=== PATIENT | female | born 1995 | race Caucasian/White ===

== ENCOUNTER 2017-05-08 08:08 | Observation (INO) ==
[2017-05-08] MEDS ORDERED: NITROGLYCERIN 1 GM OINT.TOP TD ONE (08:17)
[2017-05-08] MEDS ORDERED: NITROGLYCERIN 1 GM OINT.TOP ONE (08:23)
[2017-05-08] MEDS ORDERED: amLODIPine 10 MG TABLET PO ONE (08:30)
[2017-05-08] MEDS ORDERED: cloNIDine HCL 0.1 MG TABLET PO SCH ×2 (08:30→21:00)
[2017-05-08] MEDS ORDERED: LABETALOL 5 MG/ML ML IV ONE (08:36)
--- NOTE | 2017-05-08 08:38 | Emergency Department Note ---
SOB HPI - General Chief Complaint: Shortness of Breath/Dyspnea Stated Complaint: short of breath Time Seen by Provider: 05/08/17 08:28 Source: patient Mode of arrival: ambulatory Limitations: no limitations - History of Present Illness Patient comes in feeling shortness of breath since last night. She has also noticed that the last 24 hours her ankles have been more swollen. She is on renal dialysis, takes a number of different blood pressure medications and she has not taken her morning medications. Of note is that in triage her blood pressure was very high. She feels a chest heaviness and tightness, labored breathing. No history of coronary disease, she does have cardiomegaly on the chest x-ray. MD Complaint: shortness of breath - Related Data Home Medications Medication Instructions Recorded Confirmed amlodipine 10 mg tablet 10 mg PO BID tab 09/07/16 05/08/17 ascorbic acid (vitamin C) 1 tab PO Q2D 09/07/16 05/08/17 epoetin shannon 3,000 unit/mL 2,000 unit SUB-Q .2XW ml 09/07/16 05/08/17 injection solution sevelamer HCl 2,400 mg PO TID 09/07/16 05/08/17 RX: calcium acetate 667 mg capsule 667 mg PO TID 01/26/17 05/08/17 Previous Rx's Medication Instructions Recorded furosemide 80 mg tablet 80 mg PO DAILY #90 tab 03/09/17 hydrocodone 5 mg-acetaminophen 325 1 tab PO Q6H PRN #30 tab 05/05/17 mg tablet clonidine HCl 0.2 mg tablet 0.2 mg PO BID 90 Days 05/06/17 ferrous sulfate 325 mg (65 mg 325 mg PO BID 90 Days 05/06/17 iron) tablet,delayed release labetalol 300 mg tablet 300 mg PO TID 90 Days 05/06/17 vitamin B complex-vitamin C 100 1 tab PO QDAY #90 tab 05/06/17 mg-folic acid 1 mg tablet Allergies Allergy/AdvReac Type Severity Reaction Status Date / Time No Known Drug Allergies Allergy Verified 05/08/17 08:26 Review of Systems All systems ED: reviewed and negative except as stated. Past Medical History - Past Medical History Attestation: Yes: The following information was validated with the patient. 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.), seizures, other (gout pyelonephritis reflux nephropathy secondary hyperparathyroidismanemia and chronic disease medullary sponge kidney) Surgical history ED: Reports: vascular surgery, other (right nephrectomy) Psychiatric history: Reports: no psych history - Social History smoking status: Never smoker Alcohol use: Reports: None Drug use: Reports: none Physical Exam - General Limitations: no limitations General appearance: alert, in distress - Head Head exam: atraumatic, normocephalic - Eye Eye exam: Present: normal appearance, PERRL, EOMI - ENT ENT exam: normal exam, normal oropharynx, mucous membranes moist - Neck Neck exam: Present: normal inspection, full ROM - Chest Chest inspection: Present: normal inspection, symmetric chest wall rise. Absent : tenderness - Respiratory Respiratory exam: Present: respiratory distress, accessory muscle use, other ( Basilar crackles) - Cardiovascular Cardiovascular exam: Present: regular rate, normal rhythm, tachycardia, normal heart sounds, JVD - Abdominal Exam Abdominal exam: Present: soft, normal bowel sounds. Absent: distention, tenderness, guarding - Extremities Exam Extremities exam: Present: normal inspection, full ROM, tenderness, pedal edema - Back Exam Back exam: Present: normal inspection, full ROM. Absent: CVA tenderness (R), CVA tenderness (L) - Neurological Exam Neurological exam: Present: alert, oriented X3, CN II-XII intact - Psychiatric Psychiatric exam: Present: normal affect - Skin Skin exam: Present: warm, dry, intact. Absent: rash Course - Reevaluation(s) Reevaluation #1: At this point we have given her her regular medications also additional dose of labetalol IV to get her blood pressure down which is well over 120 diastolic. She was started on nitroglycerin, she was given her clonidine as well as labetalol and amlodipine. We will also give her 40 mg of Lasix IV as her chest x-ray is showing bilateral pulmonaryedema. Labs are pending at this time. Patient signed out to Dr. Leiva at 9 AM. Vital Signs Temperature 98.7 F 05/08/17 08:08 Pulse Rate 115 H 05/08/17 08:08 Respiratory Rate 24 H 05/08/17 08:08 Blood Pressure 206/143 05/08/17 08:08 Pulse Oximetry (%) 100 05/08/17 08:08 Temperature 98.7 F 08/13/17 08:08 Pulse Rate 100 H 05/08/17 08:46 Respiratory Rate 19 05/08/17 08:46 Blood Pressure 198/144 05/08/17 08:46 Pulse Oximetry (%) 100 05/08/17 08:46 Shortness of Breath/Dyspnea - Lab Data Result diagrams: 05/08/17 08:17 05/08/17 08:17 Disposition Pt seen by LABOR CONTRACT ANALYST/PA only: No Condition: Fair Referrals: Paco Briscoe DO [Primary Care Provider] -
[2017-05-08] MEDS ORDERED: FUROSEMIDE 40 MG/4 ML VIAL IV ONE (08:41)
[2017-05-08] MEDS ORDERED: LABETALOL 100 MG TABLET PO SCH ×2 (09:00→15:00)
[2017-05-08 09:07] LABS: Basophils # (Auto) 0.1 K/mcL (0.0-0.3); Basophils % (Auto) 0.7 % (0.0-2.0); Eosinophils # (Auto) 0.2 K/mcL (0.0-0.7); Eosinophils % (Auto) 2.7 % (0.0-7.0); Granulocytes % (Auto) 76.7 % (38.0-78.0); Lymphocytes % (Auto) 12.6 % (15.5-49.0); Mean Cell Volume 89.8 fL (80.0-100.0); Mean Corpuscular HGB Conc 32.6 g/dL (31.0-36.0); Mean Corpuscular Hemoglobin 29.3 pg (26.0-34.0); Monocytes # (Auto) 0.6 K/mcL (0.1-0.9); Monocytes % (Auto) 7.3 % (1.0-12.0); Platelet Count 299 K/mcL (140-440); RBC 3.66 M/mcL (4.00-5.20); Red Cell Distribution Width 15.8 % (11.5-14.5)
[2017-05-08 09:21] LABS: ALT/SGPT < 5 U/l (0-40); Albumin 4.1 gm/dL (3.2-5.2); Albumin/Globulin Ratio 1.5 (1.0-2.3); Alkaline Phosphatase 51 U/L (39-117); Blood Urea Nitrogen 43 mg/dl (6-20)
[2017-05-08 09:34] LABS: proBNP > 70000.0 pg/ml (0-125)
[2017-05-08] MEDS ORDERED: ONDANSETRON 4 MG/2 ML VIAL IV ONE (09:52)
--- NOTE | 2017-05-08 10:31 | XRay Report ---
CLINICAL INFORMATION: Shortness of breath COMPARISON: 01/27/2017 FINDINGS: The heart is moderately enlarged - increased from previous study. Right IJ double-lumen catheter tip overlies the right atrium near the tricuspid valve plane. Mediastinum is unremarkable. The pulmonary vessels are mildly distended compared to 01/26/2017 study and there is peribronchial vascular edema in the perihilar regions. Moderate right pleural effusion noted IMPRESSION: Moderate CHF or volume overload. Right IJ double-lumen catheter tip is near the tricuspid valve plane - suggest withdrawal 3 cm Interpreted and Authenticated by: a[place] 05/08/17
[2017-05-08] MEDS ORDERED: ACETAMINOPHEN 325 MG TABLET PO PRN (11:42)
[2017-05-08] MEDS ORDERED: ONDANSETRON 4 MG/2 ML VIAL IV PRN (11:42)
--- NOTE | 2017-05-08 11:44 | Emergency Department Note ---
SOB HPI - General Chief Complaint: Shortness of Breath/Dyspnea Stated Complaint: short of breath Time Seen by Provider: 05/08/17 08:28 Source: patient Mode of arrival: ambulatory Limitations: no limitations - Related Data Home Medications Medication Instructions Recorded Confirmed amlodipine 10 mg tablet 10 mg PO BID tab 09/07/16 05/08/17 ascorbic acid (vitamin C) 1 tab PO Q2D 09/07/16 05/08/17 epoetin shannon 3,000 unit/mL 2,000 unit SUB-Q .2XW ml 09/07/16 05/08/17 injection solution sevelamer HCl 2,400 mg PO TID 09/07/16 05/08/17 calcium acetate 667 mg capsule 667 mg PO TID 01/26/17 05/08/17 Previous Rx's Medication Instructions Recorded furosemide 80 mg tablet 80 mg PO DAILY #90 tab 03/09/17 hydrocodone 5 mg-acetaminophen 325 1 tab PO Q6H PRN #30 tab 05/05/17 mg tablet clonidine HCl 0.2 mg tablet 0.2 mg PO BID 90 Days 05/06/17 ferrous sulfate 325 mg (65 mg 325 mg PO BID 90 Days 05/06/17 iron) tablet,delayed release labetalol 300 mg tablet 300 mg PO TID 90 Days 05/06/17 vitamin B complex-vitamin C 100 1 tab PO QDAY #90 tab 05/06/17 mg-folic acid 1 mg tablet Allergies Allergy/AdvReac Type Severity Reaction Status Date / Time No Known Drug Allergies Allergy Verified 05/08/17 08:26 Past Medical History - Past Medical History 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.), seizures, other (gout pyelonephritis reflux nephropathy secondary hyperparathyroidismanemia and chronic disease medullary sponge kidney) Surgical history ED: Reports: vascular surgery, other (right nephrectomy) Psychiatric history: Reports: no psych history - Social History Alcohol use: Reports: None Drug use: Reports: none Physical Exam - General Limitations: no limitations General appearance: alert, in distress Course Vital Signs Temperature 98.7 F 05/08/17 08:08 Pulse Rate 115 H 05/08/17 08:08 Respiratory Rate 24 H 05/08/17 08:08 Blood Pressure 206/143 05/08/17 08:08 Pulse Oximetry (%) 100 05/08/17 08:08 Temperature 98.7 F 05/08/17 08:08 Pulse Rate 87 05/08/17 11:31 Respiratory Rate 24 H 05/08/17 11:31 Blood Pressure 157/108 05/08/17 11:31 Pulse Oximetry (%) 100 05/08/17 11:31 Shortness of Breath/Dyspnea - MDM Narrative Medical decision making narrative: Continuation of Dr. Jackson dictation.. Tests indicate patient is in CHF with x- ray showing volume overload. The greater than 70,000. Complaining of orthopnea. Case was discussed with the pricing lead Dr. JAIN. To be admitted to the hospitalist for volume overload with emergency dialysis today. The [facility] contacted Dr. Reyna here to evaluate the patient. - Lab Data Result diagrams: 05/08/17 08:17 05/08/17 08:17 Lab Results 05/08/17 05/08/17 05/08/17 Range/Units 08:17 08:17 08:17 WBC 7.6 (4.5-11.0) K/mcL RBC 3.66 L (4.00-5.20) M/mcL Hgb 10.7 L (12.0-15.0) g/dL Hct 32.9 L (36.0-48.0) % MCV 89.8 (80.0-100.0) fL MCH 29.3 (26.0-34.0) pg MCHC 32.6 (31.0-36.0) g/dL RDW 15.8 H (11.5-14.5) % Plt Count 299 (140-440) K/mcL MPV 6.1 L (7.4-10.4) fL Gran % 76.7 (38.0-78.0) % Lymph % (Auto) 12.6 L (15.5-49.0) % [place] % (Auto) 7.3 (1.0-12.0) % Eos % (Auto) 2.7 (0.0-7.0) % Baso % (Auto) 0.7 (0.0-2.0) % Gran # 5.9 (1.8-8.0) K/mcL Lymph # (Auto) 1.0 L (1.5-4.8) K/mcL [place] # (Auto) 0.6 (0.1-0.9) K/mcL Eos # (Auto) 0.2 (0.0-0.7) K/mcL Baso # (Auto) 0.1 (0.0-0.3) K/mcL Sodium 131 L (133-145) mmol/L Potassium 5.2 H (3.3-5.1) mmol/L Chloride 90 L (96-108) mmol/L Carbon Dioxide 18 L (22-30) mmol/L Anion Gap 23.0 H (8-16) BUN 43 H (6-20) mg/dl Creatinine 10.2 H* (0.6-1.1) mg/dl GFR Calculation 5 Glucose 83 (70-105) mg/dL Calcium 9.9 (8.6-10.4) mg/dl Total Bilirubin 0.6 (0.0-1.0) mg/dL AST 13 (0-37) U/l ALT < 5 (0-40) U/l Alkaline Phosphatase 51 (39-117) U/L Troponin T < 0.01 (0-0.03) ng/ml NT-Pro-B Natriuret Pep > 10082.0 H (0-125) pg/ml Total Protein 6.8 (5.9-8.4) gm/dL Albumin 4.1 (3.2-5.2) gm/dL Globulin 2.7 (2.2-3.7) gm/dL Albumin/Globulin Ratio 1.5 (1.0-2.3) Disposition Pt seen by STOCK PITCHER/PA only: No Clinical Impression: Chronic renal failure, Fluid overload Disposition: Xfer As Inpt ([facility]) Condition: Fair Instructions: Chronic Kidney Disease (ED) Referrals: Paco Briscoe DO [Primary Care Provider] - Time of Disposition: 11:44
[2017-05-08] MEDS ORDERED: HYDROcodone/APAP 5/325MG TABLET PO PRN (11:49)
[2017-05-08] MEDS ORDERED: hydrALAZINE 20 MG/ML VIAL IV PRN (11:51)
[2017-05-08] MEDS ORDERED: NITROGLYCERIN 1 GM OINT.TOP TD SCH (12:00)
--- NOTE | 2017-05-08 13:34 | Nephrology Consult Note ---
History of Present Illness - Reason for Consult Patient information: Note initiated : 05/08/17 at 1:27 pm Service Date, if different from initiated Date: [] Patient: Basilio Mullins 21 y/o F admitted on 05/08/17 for short of breath. Chief Complaint: [] end stage renal disease - Chief Complaint Dyspnea - History of Present Illness 21 years old female with h/o end stage renal disease, medullary sponge kidney, on hemodialysis since August 2016. She was advised by Dr. Cartwright to have hemodialysis thrice weekly on Tue-Tue-Tue but she states that she declined, as she wants to continue only Tuesday and Tuesday. She had revision of AVF done last week and was asked to have dialysis on Tuesday but she had declined. After dialysis on Tuesday, she reported weighing out at 63 kg. Dry weight is 60.2 kg, as reported by her. Presently, weight is 64 kg and she has sacral and pedal edema more than her usual. Her nurse reported that she was given IV Lasix and Nitropaste in ER and she reported feeling less short of breath now. She denied c/o fever. Her urine output is about 250-300 ml per 24 hours. She denied use of NSAIDs. Review of Systems Constitutional: as per HPI Past History Past medical history: ESRD. Medullary sponge kidney. Anemia. VUR. Secondary hyperparathyroidism. Hyperphosphatemia. Fluid overload. Hypertension. Past surgical history: AV fistula LUE. Rt IJ tunneled HD catheter. Medications and Allergies Home Medications Medication Instructions Recorded Confirmed Type amlodipine 10 mg tablet 10 mg PO BID tab 09/07/16 05/08/17 History ascorbic acid (vitamin C) 1 tab PO Q2D 09/07/16 05/08/17 History epoetin shannon 3,000 unit/mL 2,000 unit SUB-Q .2XW ml 09/07/16 05/08/17 History injection solution sevelamer HCl 2,400 mg PO TID 09/07/16 05/08/17 History calcium acetate 667 mg capsule 667 mg PO TID 01/26/17 05/08/17 History furosemide 80 mg tablet 80 mg PO DAILY #90 tab 03/09/17 05/08/17 Rx hydrocodone 5 mg-acetaminophen 325 1 tab PO Q6H PRN #30 tab 05/05/17 05/08/17 Rx mg tablet clonidine HCl 0.2 mg tablet 0.2 mg PO BID 90 Days 05/06/17 05/08/17 Rx ferrous sulfate 325 mg (65 mg 325 mg PO BID 90 Days 05/06/17 05/08/17 Rx iron) tablet,delayed release labetalol 300 mg tablet 300 mg PO TID 90 Days 05/06/17 05/08/17 Rx vitamin B complex-vitamin C 100 1 tab PO QDAY #90 tab 05/06/17 05/08/17 Rx mg-folic acid 1 mg tablet Allergies Allergy/AdvReac Type Severity Reaction Status Date / Time No Known Drug Allergies Allergy Verified 05/08/17 08:26 Exam - Vital Signs Vital signs: Temp Pulse Resp BP Pulse Ox 97.4 F 81 26 H 163/110 99 05/08/17 11:42 05/08/17 12:16 05/08/17 11:46 05/08/17 12:16 05/08/17 12:16 Additional exam: No erythema at right chest HD catheter site. +Bruit over left arm AV fistula site. Results - Lab Results 05/08/17 08:17 05/08/17 08:17 Most recent lab results Calcium 9.9 mg/dl (8.6-10.4) 05/08/17 08:17 Assessment and Plan (1) ESRD (end stage renal disease) on dialysis HD today for 2 hours, ultrafiltration 2-3 liters as tolerated. Expect BP to improve with HD/ultrafiltration. Advised to continue her usual BP medications, Lasix, iron supplement, phosphate binders. If clinically stable after hemodialysis and without hypoxia, tachycardia, hypotension or dyspnea more than her usual baseline, ok to discharge from renal standpoint. She was advised to follow up at dialysis unit tomorrow according to her usual hemodialysis schedule Patient counseled regarding fluid and sodium restriction. Also advised to start dialysis on Tuesday to complete thrice weekly Tue-Tue-Tue schedule. Risk of recurrent hospitalization and risks of fluid overload discussed. Echocardiogram will be arranged to be done as out patient. Status: Acute (2) Fluid overload Status: Acute
--- NOTE | 2017-05-08 16:52 | Internal Med History&Physical ---
Medical - H&P: [facility] Patient information: Note initiated : 05/08/17 at 4:50 pm Service Date, if different from initiated Date: [] Patient: Basilio Mullins a 21 y/o F admitted on 05/08/17 for short of breath. Chief complaint: Dyspnea, lower extremity edema History of present illness: Ms. Mullins is a 21 year old F with a history of end-stage renal disease, on hemodialysis since August 2016, currently dialyzing on Mondays and Fridays. She also has a history of secondary hyperparathyroidism, anemia related to renal disease which is stable, hypertension which has been more difficult to control. Patient underwent revision of her AV fistula as well as a fistulogram on Tuesday. She felt she probably received more fluids than usual during the surgery. She was advised to have dialysis on Tuesday, but decided to do dialysis as usual on Tuesday. Her dry weight is 60.2 kg, she was 63 kg at the end of last dialysis run. Overnight she became dyspneic. She is unable to lie down due to shortness of breath. She noticed worsening lower extremity edema, chronically has some edema , but worsened overnight. Because of the shortness of breath and worsening edema she presents to the emergency room today. She's found to be volume overloaded, also had significantly elevated blood pressure (had not yet had a chance to take her morning meds including clonidine). She received several doses of labetalol, both intravenously and orally, one incidence of Nitropaste as well as 10 mg of amlodipine and 0.1 mg of clonidine as well as 40 mg of furosemide. When I see her, her breathing has improved. However she still is volume overloaded and experiencing elevated blood pressures with systolics in the 150s and diastolics in the 100s. She will be hospitalized for urgent hemodialysis for volume overload. She denies fevers, chills, cough, sputum production. No frothy sputum. No chest pain/tightness/squeezing. She had mild nausea in the ED, resolved after Zofran. No emesis, no hematemesis, no diarrhea. No focal neurologic symptoms. Review of systems: The remainder of a 10 point review of systems is negative, except as noted in the history of present illness Medical - H&P: [facility] Medical history: Medical History (Last Updated 08/13/17 @ 11:44 by Delmer Leiva MD) ESRD (end stage renal disease) on dialysis (Acute) since 08/2016 Hypertension (Chronic) Anemia in chronic kidney disease (Chronic) Medullary sponge kidney (Chronic) CKD (chronic kidney disease), stage V (Chronic) Secondary hyperparathyroidism (Chronic) Community acquired pneumonia (Acute) Kidney failure (Chronic ~2000) Gout (Chronic) Jaw pain, non-TMJ (Acute) Reflux nephropathy (Chronic) Surgical history: Past Surgical History (Last Reviewed 03/16/17 @ 10:44 by Paco Briscoe DO) History of LUE AVF 10/2016 History of nephrectomy (Chronic ~06/2001) History of urethral stent (Chronic ~2001) Hx of tonsillectomy (Chronic ~10/2001) Pertinent family history: Family History (Last Reviewed 03/16/17 @ 10:44 by Paco Briscoe DO) Sister Vesicoureteral reflux Brother Nephrolithiasis Grandfather Arthritis Family/Other Lung cancer Ovarian cancer Cervical cancer Dementia Heart attack Stroke Father Hypertension, essential Grandfather Heart attack Smoking status: Never smoker Alcohol use: none Medical - H&P: Meds Home Medications Medication Instructions Recorded Confirmed Type amlodipine 10 mg tablet 10 mg PO BID tab 09/07/16 05/08/17 History ascorbic acid (vitamin C) 1 tab PO Q2D 09/07/16 05/08/17 History epoetin shannon 3,000 unit/mL 2,000 unit SUB-Q .2XW ml 09/07/16 05/08/17 History injection solution sevelamer HCl 2,400 mg PO TID 09/07/16 05/08/17 History calcium acetate 667 mg capsule 667 mg PO TID 01/26/17 05/08/17 History furosemide 80 mg tablet 80 mg PO DAILY #90 tab 03/09/17 05/08/17 Rx hydrocodone 5 mg-acetaminophen 325 1 tab PO Q6H PRN #30 tab 05/05/17 05/08/17 Rx mg tablet clonidine HCl 0.2 mg tablet 0.2 mg PO BID 90 Days 05/06/17 05/08/17 Rx ferrous sulfate 325 mg (65 mg 325 mg PO BID 90 Days 05/06/17 05/08/17 Rx iron) tablet,delayed release labetalol 300 mg tablet 300 mg PO TID 90 Days 05/06/17 05/08/17 Rx vitamin B complex-vitamin C 100 1 tab PO QDAY #90 tab 05/06/17 05/08/17 Rx mg-folic acid 1 mg tablet Allergies Allergy/AdvReac Type Severity Reaction Status Date / Time No Known Drug Allergies Allergy Verified 05/08/17 08:26 Medical - H&P: Exam - Constitutional Vitals: Temp Pulse Resp BP Pulse Ox 98.2 F 78 26 H 161/112 99 05/08/17 16:10 05/08/17 16:10 05/08/17 11:46 05/08/17 16:10 05/08/17 12:16 - Other Additional findings: General: Alert, in no acute distress HEENT: Normocephalic. Pupils are equally round and reactive to light. Sclera are anicteric. No conjunctival injection. Oropharynx is with moist mucous membranes, no lip or gum lesions. Tongue is midline. Neck: Supple, no meningismus. No thyromegaly. Chest: Few basal rales, otherwise clear to auscultation bilaterally No accessory muscle use. Cardiovascular: Regular rate and rhythm with 3/6 murmur throughout the precordium, consistent with bruit from upper extremity fistula. No gallop or rub. Carotid pulses are 2+. There is 3+ lower extremity edema. JVP is elevated. Abdomen: Soft, nontender without guarding or rebound. Active bowel sounds. No hepatosplenomegaly. Lymphatic: No cervical or supraclavicular lymphadenopathy. Skin: Warm, dry. No rash. Skin turgor is normal. Ecchymoses on left arm at site of fistula revision, surgical wound intact. Musculoskeletal: AVF R arm with strong thrill and bruit that radiates to clavicles and chest. No joint erythema or tenderness. Normal range of motion in the upper and lower extremities. Strength 5/5 in upper and lower extremities. Digits without cyanosis or clubbing. Neuro: Alert, oriented X3. Cranial nerves II through XII grossly intact. Sensation intact to light touch. Psychiatric: Affect and orientation are normal. Good insight. Medical - H&P: Reslt - Labs CBC & Chem 7: 05/08/17 08:17 05/08/17 08:17 - EKG Data -: EKG Reviewed by Myself EKG shows normal: sinus rhythm, intervals, ST-T waves Medical - H&P: A/P - Narrative A/P Narrative: 21-year-old female with end-stage renal disease, on hemodialysis via a tunneled catheter. Presents with evidence of volume overload. Apparently dialyzing on Mondays and Fridays there would've been recommended for her to go to 3 days a week. Suspect some chronic volume overload. Was quite symptomatic at arrival in ED, would benefit from volume reduction today. Usual dialysis days on Tuesday. Patient also with significant hypertension at presentation. In part due to not taking her morning medications. She states she's had difficult to control blood pressure over the last couple months. Suspect this is due to chronic volume overload. Potassium is only mildly elevated at 5.2, no evidence of EKG changes. This can be corrected with dialysis and does not require other treatment. Plan: Observation hospitalization Nephrology consultation for hemodialysis Continue home blood pressure regimen with PRN's ordered Supplemental oxygen as needed CODE STATUS is full code Medical - H&P: Qual - VTE Contraindication No VTE Prophylaxis: Not indicated Is this test being ordered to rule out VTE?: No Deep Vein Thrombosis/Pulmonary Embolism Present on Admission: No
--- NOTE | 2017-05-08 18:17 | Discharge Summary ---
Medical - DS: Prov Patient information: Note initiated : 05/08/17 at 6:15 pm Service Date, if different from initiated Date: [] Patient: Basilio Mullins 21 y/o F admitted on 05/08/17 for short of breath. Date of admission: 05/08/17 12:08 Discharge date: 05/08/17 Primary care physician: Paco Briscoe Admitting clinician: Urmila Girard Consults: Kale Cope MD, Nephrology Discharging clinician: Urmila Girard Medical - DS: Meds - Discharge Medications Active and Home Medications: Home Medications amlodipine 10 mg tablet 10 mg PO BID tab 09/07/16 [History Confirmed 05/08/17 Last Taken 01/24/17 06:30] ascorbic acid (vitamin C) 1 tab PO Q2D 09/07/16 [History Confirmed 05/08/17 Last Taken 01/21/17] epoetin shannon 3,000 unit/mL injection solution 2,000 unit SUB-Q .2XW ml [History Confirmed 05/08/17 Last Taken 01/21/17 07:30] sevelamer HCl 2,400 mg PO TID 09/07/16 [History Confirmed 05/08/17 Last Taken 12:00] calcium acetate 667 mg capsule 667 mg PO TID 01/26/17 [History Confirmed Last Taken Unknown] furosemide 80 mg tablet 80 mg PO DAILY #90 tab 03/09/17 [Rx Confirmed 05/08/17 Last Taken Unknown] hydrocodone 5 mg-acetaminophen 325 mg tablet 1 tab PO Q6H PRN #30 tab 05/05/17 [ Rx Confirmed 05/08/17 Last Taken Unknown] clonidine HCl 0.2 mg tablet 0.2 mg PO BID 90 Days 05/06/17 [Rx Confirmed Last Taken Unknown] ferrous sulfate 325 mg (65 mg iron) tablet,delayed release 325 mg PO BID 90 Days 05/06/17 [Rx Confirmed 05/08/17 Last Taken Unknown] labetalol 300 mg tablet 300 mg PO TID 90 Days 05/06/17 [Rx Confirmed 05/08/17 Last Taken Unknown] vitamin B complex-vitamin C 100 mg-folic acid 1 mg tablet 1 tab PO QDAY #90 tab 05/06/17 [Rx Confirmed 05/08/17 Last Taken Unknown] Medical - DS: Hosp Hospital course: Ms. Mullins is a 21 year old F hospitalized with volume overload. She has a history of end-stage renal disease, normally dialyzes on Mondays and Fridays. She had had surgery on Tuesday, received extra fluids, had declined to dialyze extra on Tuesday. For full details please see the history and physical. In the hospital she received hemodialysis. She tolerated that well. Her blood pressure became better controlled with fluid removal. Her dyspnea was resolved. Following dialysis she was ambulating the hallways without dyspnea. She will be discharged, we'll follow-up with her regularly scheduled dialysis tomorrow. Discharge diagnosis: Pulmonary edema Secondary discharge diagnosis: ESRD Medical - DS: Exam - Constitutional Vitals: Vital Signs Temp Pulse BP BP Pulse Ox 05/08/17 16:54 98.4 F 170/117 95 05/08/17 16:10 98.2 F 78 161/112 05/08/17 15:59 81 160/113 05/08/17 15:45 81 164/123 05/08/17 15:29 85 165/116 05/08/17 15:19 81 162/15 05/08/17 15:00 79 169/119 05/08/17 14:45 79 161/107 05/08/17 14:22 99.0 F H 86 152/98 05/08/17 12:16 81 163/110 99 05/08/17 12:10 37 L 160/111 91 Intake and Output 05/08/17 05/08/17 05/08/17 05:59 13:59 21:59 Output Total 35085 / 04159 Balance -75339 / -17472 Output: Hemodialysis UF 93621 / 66410 - Other Additional findings: General: No acute distress Chest: Clear, respirations unlabored. Intact upper left chest tunneled dialysis catheter. Cardiovascular: Regular with murmur/bruit as described previously. 2+ lower extremity edema Abdomen: Soft Neuro: Nonfocal Medical - DS: Data Procedures and tests throughout hospitalization: Hemodialysis Labs on day of discharge: Laboratory Results - last 24 hr 05/08/17 05/08/17 05/08/17 08:17 08:17 08:17 WBC 7.6 RBC 3.66 L Hgb 10.7 L Hct 32.9 L MCV 89.8 MCH 29.3 MCHC 32.6 RDW 15.8 H Plt Count 299 MPV 6.1 L Gran % 76.7 Lymph % (Auto) 12.6 L [place] % (Auto) 7.3 Eos % (Auto) 2.7 Baso % (Auto) 0.7 Gran # 5.9 Lymph # (Auto) 1.0 L [place] # (Auto) 0.6 Eos # (Auto) 0.2 Baso # (Auto) 0.1 Sodium 131 L Potassium 5.2 H Chloride 90 L Carbon Dioxide 18 L Anion Gap 23.0 H BUN 43 H Creatinine 10.2 H* GFR Calculation 5 Glucose 83 Calcium 9.9 Total Bilirubin 0.6 AST 13 ALT < 5 Alkaline Phosphatase 51 Troponin T < 0.01 NT-Pro-B Natriuret Pep > 31121.0 H Total Protein 6.8 Albumin 4.1 Globulin 2.7 Albumin/Globulin Ratio 1.5 Medical - DS: A/P - Patient/Caregiver Discharge Instructions Activity: increase activity as tolerated Diet: Renal Additional Instructions: Follow up with scheduled dialysis tomorrow. Discuss with Dr. Cartwright receiving dialysis MW. - Follow up Plan Follow up with: Paco Briscoe DO [Primary Care Provider] - (as needed) Gila Cartwright MD [Physician] - (1-2 weeks) Disposition: Home, Self-Care Prognosis: Good Rehab Potential: Good Overall status at discharge: patient is progressing back to baseline Medical - DS: Qual - VTE Contraindication No VTE Prophylaxis: Not indicated Deep Vein Thrombosis/Pulmonary Embolism Present on Admission: No
[2017-05-08] MEDS ORDERED: amLODIPine 10 MG TABLET PO SCH (21:00)
[2017-05-09] MEDS ORDERED: PANTOPRAZOLE 40 MG TABLET PO SCH (07:30)
[2017-05-09] MEDS ORDERED: FUROSEMIDE 80 MG TABLET PO SCH (09:00)
== END 2017-05-08 18:45 | disposition home or self-care (01) ==
LOC: ICU 08:08 → ED 08:08 → ICU 11:49
PROVIDERS: ADMIT Internal Medicine; ATTEND Internal Medicine